=== PATIENT | female | born 1995 | race Caucasian/White ===

== ENCOUNTER 2017-11-10 16:48 | Emergency (ER) | payer BC ==
[2017-11-10 17:20] VITALS: BP 117/72; PULSE 87; RESP 18; TEMP 98.8; O2SAT 100
[2017-11-10 17:57] LABS: BASOPHIL % 0.2 % (0.0-2.0); EOSINOPHIL % 0.6 % (0.0-4.0); HEMATOCRIT 34.9 % (35.0-46.0); HEMOGLOBIN 11.6 GM/DL (11.6-15.3); LYMPH % 19.3 % (9.0-44.0); LYMPHOCYTE # 1.6 TH/MM3 (1.0-4.8); MEAN CELL VOLUME 83.5 FL (80.0-100.0); MEAN CORPUSCULAR HEMOGLOBIN 27.7 PG (27.0-34.0); MEAN CORPUSCULAR HGB CONC 33.1 % (32.0-36.0); MEAN PLATELET VOLUME 8.8 FL (7.0-11.0); MONO % 7.6 % (0.0-8.0); MONOCYTE # 0.6 TH/MM3 (0-0.9); NEUT % 72.3 % (16.0-70.0); PLATELET COUNT 218 TH/MM3 (150-450); RED BLOOD COUNT 4.18 MIL/MM3 (4.00-5.30); WHITE BLOOD COUNT 8.2 TH/MM3 (4.0-11.0)
[2017-11-10 18:18] LABS: ALBUMIN 3.4 GM/DL (3.4-5.0); ALT (GPT) 17 U/L (9-42); AST (GOT) 16 U/L (16-38); BLOOD UREA NITROGEN 10 MG/DL (7-18); CALCIUM 8.9 MG/DL (8.5-10.1); CHLORIDE 106 MEQ/L (98-107); CREATININE 0.82 MG/DL (0.50-1.00); GLOMERULAR FILTRATION RATE 89 ML/MIN (>89); GLUCOSE,RANDOM 66 MG/DL (74-106); SODIUM (NA) 139 MEQ/L (136-145)
[2017-11-10 18:21] LABS: ALKALINE PHOSPHATASE 64 U/L (45-117); TOTAL BILIRUBIN ADULT 0.3 MG/DL (0.2-1.0); TOTAL PROTEIN 6.9 GM/DL (6.4-8.2)
[2017-11-10] MEDS ORDERED: PREN29TA PO (18:36)
--- NOTE | 2017-11-10 18:43 | PD ---
HPI Chief Complaint: Syncope/Near-Syncope Time Seen by Provider: 18:17 Travel History International Travel<30 days: No Contact w/Intl Traveler<30days: No Traveled to known affect area: No History of Present Illness HPI The patient is a 22-year-old female who presents to the emergency department for syncope, chest pain, shortness of breath. The patient states she is just over 16 weeks , was 16 weeks as of Tuesday. The patient is a who is at home earlier today, sitting on the bed, texting, which she had a syncopal episode. The patient had no symptoms prior to the syncopal episode. She denied any palpitations, lightheadedness, chest pain, shortness of breath, nausea, vomiting, or diaphoresis. The patient states she was sitting on the bed when she passed out, did not fall off of the bed. The patient states when she awakened she had bilateral chest tightness and shortness of breath. The patient denies any previous history of syncopal does have one episode of a syncopal episode secondary to hypoglycemia per her report. The patient denies any history of pulmonary embolism, DVT, lower extremity edema, recent travel, recent hospitalizations, or recent surgery. Symptoms are moderate. She denies any accompanying nausea, vomiting, abdominal pain, vaginal bleeding, or pelvic pain. Symptoms are moderate. PFSH Past Medical History Anemia: Yes ?: LMP: 07/17/17 Past Surgical History Narrative Surgical Bilateral ACL repairs Social History Alcohol Use: No Tobacco Use: No Substance Use: No Allergies-Medications (Allergen,Severity, Reaction): Coded Allergies: No Known Allergies (Unverified , 11/10/17) Reported Meds & Prescriptions Reported Meds & Active Scripts Active Reported Plus Iron 29-1 mg ( Vit-Iron Carbonyl) 29 Mg Iron-1 Mg Tab 1 Tab PO DAILY Review of Systems Except as stated in HPI: all other systems reviewed are Neg General / Constitutional: No: Fever HENT: No: Headaches, Lightheadedness Cardiovascular: Positive: Chest Pain or Discomfort, Syncope, No: Palpitations, Irregular Rhythm, Diaphoresis Respiratory: Positive: Shortness of Breath, No: Cough Gastrointestinal: No: Nausea, Vomiting, Abdominal Pain Genitourinary: No: Dysuria, Discharge, Vaginal Bleeding Musculoskeletal: No: Edema Neurologic: Positive: Syncope, No: Dizziness Physical Exam Narrative GENERAL: Awake, alert, very pleasant 22-year-old female who appears her stated age and is in no acute respiratory distress. SKIN: Focused skin assessment warm/dry. HEAD: Atraumatic. Normocephalic. EYES: Pupils equal and round. No scleral icterus. No injection or drainage. ENT: No nasal bleeding or discharge. Mucous membranes pink and moist. NECK: Trachea midline. No JVD. CARDIOVASCULAR: Regular rate and rhythm. No murmur appreciated. Heart rate in the 70s. RESPIRATORY: No accessory muscle use. Clear to auscultation. Breath sounds equal bilaterally. No audible wheezing, rhonchi, or rales. GASTROINTESTINAL: Abdomen soft, non-tender, nondistended. No rebound tenderness. MUSCULOSKELETAL: No obvious deformities. No clubbing. No cyanosis. No edema. Calves are soft bilaterally. NEUROLOGICAL: Awake and alert. No obvious cranial nerve deficits. Motor grossly within normal limits. Normal speech. PSYCHIATRIC: Appropriate mood and affect; insight and judgment normal. Data Data Last Documented VS Vital Signs Date Time Temp Pulse Resp B/P (MAP) Pulse Ox O2 Delivery O2 Flow Rate FiO2 11/10/17 17:20 98.8 87 18 117/72 (87) 100 Orders Orders Electrocardiogram (11/10/17 17:23) Complete Blood Count With Diff (11/10/17 17:23) Comprehensive Metabolic Panel (11/10/17 17:23) Ed Poc Ultrasound (11/10/17 18:27) Chest, Single Ap (11/10/17 ) D-Dimer (11/10/17 18:33) Troponin I (11/10/17 18:33) Creatine Kinase (Cpk) (11/10/17 18:33) Sodium Chlor 0.9% 1000 Ml Inj (Ns 1000 M (11/10/17 18:45) Labs Laboratory Tests Test 11/10/17 17:35 11/10/17 18:44 White Blood Count 8.2 TH/MM3 Red Blood Count 4.18 MIL/MM3 Hemoglobin 11.6 GM/DL Hematocrit 34.9 % Mean Corpuscular Volume 83.5 FL Mean Corpuscular Hemoglobin 27.7 PG Mean Corpuscular Hemoglobin Concent 33.1 % Red Cell Distribution Width 17.0 % Platelet Count 218 TH/MM3 Mean Platelet Volume 8.8 FL Neutrophils (%) (Auto) 72.3 % Lymphocytes (%) (Auto) 19.3 % Monocytes (%) (Auto) 7.6 % Eosinophils (%) (Auto) 0.6 % Basophils (%) (Auto) 0.2 % Neutrophils # (Auto) 6.0 TH/MM3 Lymphocytes # (Auto) 1.6 TH/MM3 Monocytes # (Auto) 0.6 TH/MM3 Eosinophils # (Auto) 0.0 TH/MM3 Basophils # (Auto) 0.0 TH/MM3 CBC Comment DIFF FINAL Differential Comment Blood Urea Nitrogen 10 MG/DL Creatinine 0.82 MG/DL Random Glucose 66 MG/DL Total Protein 6.9 GM/DL Albumin 3.4 GM/DL Calcium Level 8.9 MG/DL Alkaline Phosphatase 64 U/L Aspartate Amino Transf (AST/SGOT) 16 U/L Alanine Aminotransferase (ALT/SGPT) 17 U/L Total Bilirubin 0.3 MG/DL Sodium Level 139 MEQ/L Potassium Level 3.7 MEQ/L Chloride Level 106 MEQ/L Carbon Dioxide Level 23.0 MEQ/L Anion Gap 10 MEQ/L Estimat Glomerular Filtration Rate 89 ML/MIN Total Creatine Kinase 51 U/L Troponin I LESS THAN 0.02 NG/ML D-Dimer Quantitative (PE/DVT) 0.39 MG/L FEU MDM Medical Decision Making Medical Screen Exam Complete: Yes Emergency Medical Condition: Yes Medical Record Reviewed: Yes Interpretation(s) EKG reveals normal sinus rhythm with a rate of 73. No ischemic changes or ectopy noted. No evidence of WPW or Brugada syndrome. Inverted P-wave in lead III, however, upright in lead II. Last Impressions Chest X-Ray 11/10/17 0000 Signed Impressions: CONCLUSION: No acute cardiopulmonary disease Laboratory Tests Test 11/10/17 17:35 11/10/17 18:44 White Blood Count 8.2 TH/MM3 Red Blood Count 4.18 MIL/MM3 Hemoglobin 11.6 GM/DL Hematocrit 34.9 % Mean Corpuscular Volume 83.5 FL Mean Corpuscular Hemoglobin 27.7 PG Mean Corpuscular Hemoglobin Concent 33.1 % Red Cell Distribution Width 17.0 % Platelet Count 218 TH/MM3 Mean Platelet Volume 8.8 FL Neutrophils (%) (Auto) 72.3 % Lymphocytes (%) (Auto) 19.3 % Monocytes (%) (Auto) 7.6 % Eosinophils (%) (Auto) 0.6 % Basophils (%) (Auto) 0.2 % Neutrophils # (Auto) 6.0 TH/MM3 Lymphocytes # (Auto) 1.6 TH/MM3 Monocytes # (Auto) 0.6 TH/MM3 Eosinophils # (Auto) 0.0 TH/MM3 Basophils # (Auto) 0.0 TH/MM3 CBC Comment DIFF FINAL Differential Comment Blood Urea Nitrogen 10 MG/DL Creatinine 0.82 MG/DL Random Glucose 66 MG/DL Total Protein 6.9 GM/DL Albumin 3.4 GM/DL Calcium Level 8.9 MG/DL Alkaline Phosphatase 64 U/L Aspartate Amino Transf (AST/SGOT) 16 U/L Alanine Aminotransferase (ALT/SGPT) 17 U/L Total Bilirubin 0.3 MG/DL Sodium Level 139 MEQ/L Potassium Level 3.7 MEQ/L Chloride Level 106 MEQ/L Carbon Dioxide Level 23.0 MEQ/L Anion Gap 10 MEQ/L Estimat Glomerular Filtration Rate 89 ML/MIN Total Creatine Kinase 51 U/L Troponin I LESS THAN 0.02 NG/ML D-Dimer Quantitative (PE/DVT) 0.39 MG/L FEU Differential Diagnosis Differential diagnosis includes dehydration, arrhythmia, vasovagal syncope, pulmonary embolism, symptomatic anemia, hypoglycemia, cardiogenic syncope, neurogenic syncope. Narrative Course IV was established, labs are drawn and sent, the patient was placed on cardiac telemetry monitoring and continuous pulse oximetry monitoring. EKG was ordered and interpreted. Bedside ultrasound was performed which reveals an intrauterine fetus with positive heart tones and positive movement. D-dimer was sent to lab. The patient was administered 1 L of IV fluids. Chest x-ray was ordered, comments were placed to shield the patient as she is . Chest x-ray is unremarkable. D-dimer was 0.39, therefore, no indication for VQ scan. The patient was monitored on cardiac telemetry monitoring, it revealed normal sinus rhythm, no evidence of ectopy. The patient 's troponin and CPK are unremarkable. The patient is medically clear to follow- up with her medical malpractice paralegal on an outpatient basis. She is advised to return if symptoms worsen or progress. Procedures Procedure Narrative A bedside ultrasound was performed using a curvilinear probe with a female nurse present in the room. Ultrasound reveals a fetus within the uterus, positive movement with positive heart tones. The patient was shown the ultrasound as it was performed real time. The patient tolerated the ultrasound without difficulty and there was no obvious complications. Diagnosis Primary Impression: Syncope Qualified Codes: R55 - Syncope and collapse Additional Impression: Qualified Codes: Z3A.16 - 16 weeks gestation of Patient Instructions: General Instructions Additional Instructions: Please provide the patient a copy of her x-ray results and lab results at discharge. Follow-up with your medical malpractice paralegal. Return if symptoms worsen or progress. Med/Other Pt SpecificInfo: No Change to Meds Disposition: 01 DISCHARGE HOME Condition: Stable Cesar Oneill MD Nov 10, 2017 18:43
[2017-11-10] MEDS ORDERED: SODIUM CHLOR 0.9% 1000 ML INJ 1,000 ML IV ONE (18:45)
[2017-11-10 19:29] LABS: TROPONIN I LESS THAN 0.02 NG/ML (0.02-0.05)
--- NOTE | 2017-11-10 19:41 | RADRPT ---
EXAM DATE: 11/10/2017 7:38 PM EDT AGE/SEX: 22 years / Female INDICATIONS: Short of breath since this afternoon. CLINICAL DATA: This is the patient's initial encounter. Patient reports that signs and symptoms have been present for 1 day and indicates a pain score of 0/10. MEDICAL/SURGICAL HISTORY: None. None. COMPARISON: No prior exams available for comparison. FINDINGS: A single AP view of the chest demonstrates the lungs to be symmetrically aerated without evidence of mass, infiltrate or effusion. The cardiomediastinal contours are unremarkable. Osseous structures a re intact. CONCLUSION: No acute cardiopulmonary disease Electronically signed by: Garcia Frye MD 11/10/2017 7:39 PM EDT
--- NOTE | 2017-11-10 20:50 | EKG ---
Date Performed: 11/10/2017 Time Performed: 17:31:14 PTAGE: 22 years EKG: Sinus rhythm WITH SINUS ARRHYTHMIA NORMAL ECG NO PREVIOUS TRACING DOCTOR: Foster Burrell Interpretating Date/Time 11/10/2017 20:48:25
[2017-11-10 21:40] VITALS: BP 104/77
== END 2017-11-10 21:45 | disposition home or self-care (01) ==
LOC: NEPD 16:48
DX: O26.892 Other specified pregnancy related conditions, second trimester (principal); R55 Syncope and collapse; R07.9 Chest pain, unspecified; R06.02 Shortness of breath; Z3A.16 16 weeks gestation of pregnancy
CPT/HCPCS: 71045; 80053; 82550; 84484; 85025; 85379; 93005; 96360; 99285; J7030